=== PATIENT | male | born 1970 | race Caucasian/White ===

== ENCOUNTER → 2024-01-20 06:59 | Outpatient (REF) | payer OTHER, SELFPAY ==
[2024-01-20 07:40] LABS: % Basophils 0.8 % (0-2); % Eosinophils 1.4 % (0-6); % Immature Granulocytes 0.6 % (0-0.5); % Lymphocytes 30.5 % (20.5-51.1); % Monocytes 10.5 % (1.7-9.3); % Neutrophils 56.2 % (42.2-75.2); Absolute Eosinophils 0.1 10^3/uL (0-0.7); Absolute Lymphocytes 1.5 10^3/uL (1.2-3.4); Absolute Monocytes 0.5 10^3/uL (0.1-0.6); Absolute Neutrophils 2.8 10^3/uL (1.4-6.5); Hematocrit 46.8 % (39.0-52.0); Hemoglobin 15.7 g/dL (13.0-18.0); Mean Corp Hgb Conc. 33.5 g/dL (33.0-37.0); Mean Corpuscular Hgb 28.9 pg (27.0-31.0); Mean Platelet Volume 10.3 fL (7.4-10.4); Nucleated Red Blood Cells % 0 % (-); Platelet Count 196 10^3/uL (130-400); Red Blood Cell Count 5.44 10^6/uL (4.70-6.10); Red Cell Dist. Width 12.2 % (11.5-14.5)
[2024-01-20 09:58] LABS: Glycohemoglobin (HgbA1c) 5.6 % (4.0-5.6)
== END ==
LOC: REG 06:59
PROVIDERS: ATTENDING PHYSICIAN Nurse Practitioner Family
DX: D72.819 Decreased white blood cell count, unspecified (principal); R73.01 Impaired fasting glucose
CPT/HCPCS: 36415; 83036; 85025

== ENCOUNTER → 2024-08-13 08:04 | Outpatient (REF) | payer OTHER, SELFPAY ==
[2024-08-13 08:53] LABS: % Basophils 1.1 % (0-2); % Eosinophils 1.7 % (0-6); % Immature Granulocytes 0.4 % (0-0.5); % Lymphocytes 31.3 % (20.5-51.1); % Monocytes 10.4 % (1.7-9.3); % Neutrophils 55.1 % (42.2-75.2); Absolute Basophils 0.1 10^3/uL (0-0.2); Absolute Eosinophils 0.1 10^3/uL (0-0.7); Absolute Lymphocytes 1.5 10^3/uL (1.2-3.4); Absolute Monocytes 0.5 10^3/uL (0.1-0.6); Absolute Neutrophils 2.6 10^3/uL (1.4-6.5); Hematocrit 46.6 % (39.0-52.0); Hemoglobin 15.8 g/dL (13.0-18.0); Mean Corp Hgb Conc. 33.9 g/dL (33.0-37.0); Mean Corpuscular Hgb 28.4 pg (27.0-31.0); Mean Corpuscular Volume 83.7 fL (80.0-94.0); Mean Platelet Volume 10.2 fL (7.4-10.4); Nucleated Red Blood Cells % 0 % (-); Platelet Count 191 10^3/uL (130-400); Red Blood Cell Count 5.57 10^6/uL (4.70-6.10); White Blood Cell Count 4.7 10^3/uL (4.8-10.8)
[2024-08-13 09:28] LABS: ALT (SGPT) 23 U/L (0-50); AST (SGOT) 27 U/L (17-59); Albumin 4.7 g/dl (3.5-5.0); Alkaline Phosphatase 72 U/L (38-126); Blood Urea Nitrogen 21 mg/dl (9-20); Calcium 9.7 mg/dl (8.4-10.2); Carbon Dioxide 28 mmol/L (22-30); Chloride 103 mmol/L (98-107); Glucose 109 mg/dl (70-99); HDL Cholesterol 44 mg/dl; LDL Cholesterol, Calculated 171 mg/dl; Potassium 4.4 mmol/L (3.5-5.1); Sodium 142 mmol/L (135-145); Total Bilirubin 0.5 mg/dl (0.2-1.3); Total Cholesterol 250 mg/dl (50-199); Triglyceride 175 mg/dl (10-149); Very Low Density Lipoprotein 35 mg/dl (0-30); eGFR > 60.00
[2024-08-13 10:00] LABS: PSA, Total - Diagnostic 0.64 ng/ml (0.0-4.0); TSH Reflex To Free T4 1.12 uIU/ml (0.47-4.68)
[2024-08-13 11:00] LABS: Glycohemoglobin (HgbA1c) 5.4 % (4.0-5.6)
== END ==
LOC: REG 08:04
PROVIDERS: ATTENDING PHYSICIAN Nurse Practitioner Family
DX: Z00.00 Encounter for general adult medical examination without abnormal findings (principal); Z12.5 Encounter for screening for malignant neoplasm of prostate
CPT/HCPCS: 36415; 80053; 80061; 83036; 84153; 84443; 85025

== ENCOUNTER 2025-04-30 09:17 | Emergency (ER) | payer OTHER, SELFPAY ==
[2025-04-30 09:28] VITALS: BP 136/86
--- NOTE | 2025-04-30 10:46 | ED.SKININJ ---
HPI-Injury
General
Chief Complaint: Skin Problem
Source: patient
Exam Limitations: none
Time Seen by Provider: 04/30/25 10:13
History of Present Illness-Injury
Initial Injury comments:
54-year-old male presents with increased pain and swelling to the left posterior neck. He has had a cyst in this area for the past several years. He has had drainage procedures performed on this several times. Most recently he was drained 1 month
ago. It returned and worsened over the past several days. No fevers. He has trouble turning his head to the left secondary to the amount of swelling but denies a headache. No other complaints at this time
Phy Exam
Physical Exam
Physical Exam:
General: Well-appearing male no acute respiratory distress
HEENT: Normocephalic atraumatic
Skin: Erythema fluctuance and swelling noted over the left posterior neck. Total area of fluctuance is about 4 cm in diameter
Neurologic exam: No nuchal rigidity normal gait
Course
Vital Signs
Initial and Last Documented VS:
Initial Vital Signs
Temp Pulse Resp BP Pulse Ox
98.6 F 65 16 136/86 99
04/30/25 09:28 04/30/25 09:28 04/30/25 09:28 04/30/25 09:28 04/30/25 09:28
Last Documented Vital Signs
Temp Pulse Resp BP Pulse Ox
98.6 F 65 16 136/86 99
04/30/25 09:28 04/30/25 09:28 04/30/25 09:28 04/30/25 09:28 04/30/25 09:28
MDM/Problems Addressed
Differential Diagnosis Includes:
Swelling with erythema and fluctuance left posterior neck exam most consistent with abscess. Other items in differential could include infected sebaceous cyst and less likely lymph node
Verbal consent obtained for incision and drainage of the abscess. 1% lidocaine with epinephrine was used anesthetize skin local fashion. An 11 blade incision was made over the area of fluctuance and a copious amount of purulent material was
expressed from the wound. Loculations were broken up. Direct pressure was applied and further large amount of purulent material was expressed. This was then irrigated with saline and dressed. Patient felt much better after the procedure. Will
start Bactrim.
*Critical Care Note
Total Time (30-74mins, 75-104mins- exclusive of procedures): Not Applicable
ED Attending Note
-
Portions of this chart may have been created with voice recognition software.� Occasional wrong word or��sound alike� substitutions may have occurred due to the inherent limitations of voice recognition software.
Discharge Plan
Departure
Patient Disposition: Home (Routine Discharge)
Date of Disposition: 04/30/25
Time of Disposition: 10:48
Patient with high blood pressure during this ER visit?: No
Discharge Problem:
Abscess
Instructions: Skin Abscess
Prescriptions:
New
sulfamethoxazole-trimethoprim [Bactrim DS] 800-160 mg tablet
1 tab PO BID Qty: 14 0RF
Referrals:
Wes Castaneda MD [Family Provider, Family Practice]
Activity Restrictions/Additional Instructions:
Take antibiotics as directed. Follow-up with surgeon as planned. Return here for worsening symptoms. Pat it dry if you get it wet.
Interventions
Interventions:
*Risk Screen - Suicide Last Done: 04/30/25 10:40
*Neglect/Abuse Screening Last Done: 04/30/25 10:40
*ED- Fall Risk Assessment Last Done: 04/30/25 10:40
*ED COVID-19 Vaccine History Last Done: 04/30/25 10:40
ED-Skin Assessment Last Done: 04/30/25 10:40
Discharge Date and Time
Print Language: KOREAN
== END 2025-04-30 10:52 | disposition home or self-care (01) ==
LOC: EMR 09:17
PROVIDERS: EMERGENCY PHYSICIAN Emergency Medicine; FAMILY PHYSICIAN Family Medicine
DX: L02.11 Cutaneous abscess of neck (principal)
CPT/HCPCS: 99282; 10060